=== PATIENT | female | born 1965 | race Caucasian/White ===

== ENCOUNTER 2017-09-06 00:07 | Day surgery (SDC) | payer OTHER ==
[~2017-09-06 00:07] MED LIST: Albuterol2.5 MG/0.5 INH; CHOL10002 PO; CLON.5 PO; CYAN1000I INJ; DIPH50 PO; DOXY100 PO; Desyrel150 MG PO; ESTMEDA PO; ESTR2; FERR325 PO; FLUSAL5005 INH; FURO40 PO; GUAI600T33 PO; LEVSOD100 PO; LORA.5 PO; MECL12.5 PO; MELO7.5 PO; METF500 PO; MONT10T PO; OMEPRAZOLE MAGN20 MG PO; POTA10T PO; PRIM250 PO; PROG100 PO; ROFL500T PO; SIMV40 PO; TIOT18 INH; VENL75ER PO
== END 2017-09-06 09:45 | disposition home or self-care (01) ==
LOC: ATC 00:07
DX: E53.8 Deficiency of other specified B group vitamins (principal); M25.551 Pain in right hip; E11.9 Type 2 diabetes mellitus without complications; H93.13 Tinnitus, bilateral
CPT/HCPCS: 96372; J3420

== ENCOUNTER 2017-10-13 00:29 | Day surgery (SDC) | payer OTHER | END 2017-10-13 10:16 | disposition home or self-care (01) | LOC: ATC 00:29 | DX: E53.8 Deficiency of other specified B group vitamins (principal); M25.551 Pain in right hip; E11.9 Type 2 diabetes mellitus without complications; H61.22 Impacted cerumen, left ear; Z87.891 Personal history of nicotine dependence | CPT/HCPCS: 96372; J3420 ==

== ENCOUNTER 2017-11-10 01:51 | Day surgery (SDC) | payer OTHER ==
[2017-11-10] MEDS ORDERED: GABA100 PO (09:58)
[2017-11-10] MEDS ORDERED: [UNRECOGNIZED DRUG - OTHER] (10:00)
== END 2017-11-10 10:00 | disposition home or self-care (01) ==
LOC: ATC 01:51
DX: E53.9 Vitamin B deficiency, unspecified (principal)
CPT/HCPCS: 96372; J3420

== ENCOUNTER 2017-12-10 00:43 | Day surgery (SDC) | payer OTHER ==
[~2017-12-10 00:43] MED LIST changes: +GABA100 PO; +[UNRECOGNIZED DRUG - OTHER]
[2017-12-10] MEDS ORDERED: Zanaflex4 MG PO (09:42)
== END 2017-12-10 09:46 | disposition home or self-care (01) ==
LOC: ATC 00:43
DX: E53.8 Deficiency of other specified B group vitamins (principal); Z87.891 Personal history of nicotine dependence; M54.31 Sciatica, right side; M25.551 Pain in right hip; M43.10 Spondylolisthesis, site unspecified; E66.01 Morbid (severe) obesity due to excess calories; E11.42 Type 2 diabetes mellitus with diabetic polyneuropathy
CPT/HCPCS: 96372; J3420

== ENCOUNTER 2018-01-07 00:15 | Day surgery (SDC) | payer OTHER ==
[~2018-01-07 00:15] MED LIST changes: +Zanaflex4 MG PO
== END 2018-01-07 09:55 | disposition home or self-care (01) ==
LOC: ATC 00:15
DX: E53.8 Deficiency of other specified B group vitamins (principal); E78.00 Pure hypercholesterolemia, unspecified; M54.31 Sciatica, right side; M43.10 Spondylolisthesis, site unspecified; E66.01 Morbid (severe) obesity due to excess calories; E11.42 Type 2 diabetes mellitus with diabetic polyneuropathy
CPT/HCPCS: 96372; J3420

== ENCOUNTER 2018-02-07 07:45 | Day surgery (SDC) | payer OTHER | END 2018-02-07 09:54 | disposition home or self-care (01) | LOC: ATC 07:45 | DX: E53.8 Deficiency of other specified B group vitamins (principal); C53.9 Malignant neoplasm of cervix uteri, unspecified; G47.30 Sleep apnea, unspecified; E78.00 Pure hypercholesterolemia, unspecified; M54.31 Sciatica, right side; M25.551 Pain in right hip; M43.10 Spondylolisthesis, site unspecified; E11.42 Type 2 diabetes mellitus with diabetic polyneuropathy; E11.51 Type 2 diabetes mellitus with diabetic peripheral angiopathy without gangrene; Z87.891 Personal history of nicotine dependence | CPT/HCPCS: 96372; J3420 ==

== ENCOUNTER 2018-04-07 00:27 | Day surgery (SDC) | payer OTHER | END 2018-04-07 09:38 | disposition home or self-care (01) | LOC: ATC 00:27 | DX: E53.8 Deficiency of other specified B group vitamins (principal); G47.30 Sleep apnea, unspecified; M54.31 Sciatica, right side; M43.10 Spondylolisthesis, site unspecified; E66.01 Morbid (severe) obesity due to excess calories; E11.51 Type 2 diabetes mellitus with diabetic peripheral angiopathy without gangrene; E11.42 Type 2 diabetes mellitus with diabetic polyneuropathy | CPT/HCPCS: 96372; J3420 ==

== ENCOUNTER 2018-10-07 09:03 | Emergency (ER) | payer OTHER ==
[~2018-10-07] VITALS: Ht 167.6 cm; Wt 121.6 kg
[2018-10-07] MEDS ORDERED: DULERA 100 MCG/13 GM (09:56)
[2018-10-07] MEDS ORDERED: Robaxin500 MG PO (10:49)
== END 2018-10-07 11:16 | disposition home or self-care (01) ==
LOC: ER 09:03
DX: R06.00 Dyspnea, unspecified (principal); R07.81 Pleurodynia; E11.9 Type 2 diabetes mellitus without complications; E03.9 Hypothyroidism, unspecified; J44.9 Chronic obstructive pulmonary disease, unspecified; Z79.84 Long term (current) use of oral hypoglycemic drugs; Z87.891 Personal history of nicotine dependence; Z79.899 Other long term (current) drug therapy
CPT/HCPCS: 71046; 93005; 93010

== ENCOUNTER → 2020-05-21 | Outpatient (CLI) | payer OTHER ==
[~2020-05-21] MED LIST changes: +DULERA 100 MCG/13 GM; +Robaxin500 MG PO
[2020-05-21 15:56] LABS: Source, Urine Clean Catch
[2020-05-21 17:38] LABS: Bilirubin, Urine Neg (Neg); Blood, Urine Neg (Neg); Glucose Qualitative, Urine Neg (Neg); Ketones, Urine Neg (Neg); Leukocyte Esterase, Urine Neg (Neg); Nitrite, Urine Neg (Neg); Protein, Urine Neg (Neg); Urobilinogen, Urine NORM (Normal)
[2020-05-21 18:01] LABS: Appearance, Urine Clear (Clear); Color, Urine Yellow (P-Yellow)
[2020-05-21 18:33] LABS: Creatinine, Urine Random 76.5 mg/dL (27.00-270.00)
[2020-05-21 18:36] LABS: Microalb/Creat Ratio UR, Rand 20.261 mg/g (0.000-30.000); Microalbumin, Random Urine 15.5 mg/L (0.000-20.000)
== END | disposition home or self-care (01) ==
LOC: LAB 15:50 → LAB SHORT 15:50
PROVIDERS: Nurse Practitioner Family
DX: E11.40 Type 2 diabetes mellitus with diabetic neuropathy, unspecified (principal); N28.9 Disorder of kidney and ureter, unspecified; R39.15 Urgency of urination
CPT/HCPCS: 81003; 82043; 82570

== ENCOUNTER → 2020-09-04 | Outpatient (CLI) | payer OTHER ==
[2020-09-06 18:11] LABS: COTININE Negative ng/mL (Cutoff=300)
== END | disposition home or self-care (01) ==
LOC: LAB 11:00
PROVIDERS: Neurological Surgery
DX: F17.290 Nicotine dependence, other tobacco product, uncomplicated (principal)

== ENCOUNTER 2021-04-15 15:28 | Emergency (ER) | payer OTHER ==
[~2021-04-15] VITALS: Ht 167.6 cm; Wt 117.9 kg
[2021-04-15 16:37] LABS: BASOPHILS ABSOLUTE AUTO 0.01 K/mm3 (0.00-0.23); BASOPHILS PERCENT AUTO 0 % (0-2); EOSINOPHILS PERCENT AUTO 0 % (0-6); Hematocrit 34.2 % (33.0-51.0); Hemoglobin 10.9 g/dL (11.5-16.0); IMMATURE GRAN ABSOLUTE AUTO 0.02 K/mm3 (0.00-0.10); IMMATURE GRAN PERCENT AUTO 1 % (0-1); LYMPHOCYTES ABSOLUTE AUTO 0.83 K/mm3 (0.84-5.20); LYMPHOCYTES PERCENT AUTO 19 % (21-46); MONOCYTES ABSOLUTE AUTO 0.35 K/mm3 (0.16-1.47); MONOCYTES PERCENT AUTO 8 % (4-13); Mean Corpuscular HGB 28.1 pg (26.0-34.0); Mean Corpuscular HGB Conc 31.9 g/dL (31.5-36.5); Mean Corpuscular Volume 88 fL (80-100); Mean Platelet Volume 9.8 fL (9.1-12.4); NEUTROPHILS ABSOLUTE AUTO 3.14 K/mm3 (1.96-9.15); NEUTROPHILS PERCENT AUTO 72 % (41-73); Platelet Count 220 K/mm3 (150-400); RDW Standard Deviation 48.4 fL (35.1-46.3); Red Blood Cell Count 3.88 M/mm3 (3.80-5.20); White Blood Cell Count 4.35 K/mm3 (4.00-11.30)
[2021-04-15 17:05] LABS: Alanine Aminotransfer (ALT/SGP 16 U/L (12-78); Albumin, Blood 2.9 g/dL (3.4-5.0); Albumin/Globulin Ratio 0.7 (0.8-1.8); Alk Phos 70 U/L (50-136); Anion Gap 5 mmol/L (6-16); Aspartate Aminotrans (AST/SGOT 17 U/L (12-37); Bilirubin, Total 0.3 mg/dL (0.1-1.0); Blood Urea Nitrogen 15 mg/dL (8-24); Bun/Creatinine Ratio 13.4 (12.0-20.0); CO2, Blood 27 mmol/L (21-32); Calcium, Blood 8.4 mg/dL (8.5-10.1); Chloride, Blood 99 mmol/L (98-108); Creatinine, Blood 1.12 mg/dL (0.40-1.00); Globulin, Blood 4.2 g/dL (2.2-4.0); Glomerular Filtration Rate 50 (60-); Glucose, Blood 121 mg/dL (70-99); Potassium, Blood 3.9 mmol/L (3.5-5.5); Sodium, Blood 131 mmol/L (136-145); Total Protein, Blood 7.1 g/dL (6.4-8.2); Troponin I <0.015 ng/mL (0.000-0.040)
[2021-04-15] MEDS ORDERED: DEXA4 PO (18:10)
== END 2021-04-15 20:00 | disposition home or self-care (01) ==
LOC: ER 15:28
PROVIDERS: Physician Assistant
DX: U07.1 COVID-19 (principal); J44.1 Chronic obstructive pulmonary disease with (acute) exacerbation; E11.9 Type 2 diabetes mellitus without complications; E03.9 Hypothyroidism, unspecified; G47.30 Sleep apnea, unspecified; Z79.899 Other long term (current) drug therapy; Z79.84 Long term (current) use of oral hypoglycemic drugs
CPT/HCPCS: 36415; 71045; 80053; 84145; 84484; 85025; 93005; 93010; 96361; 96372; 96374; 99285-25; A9270; J2930; J7030; Q0243

== ENCOUNTER → 2022-02-11 | Outpatient (CLI) | payer OTHER ==
[~2022-02-11] MED LIST changes: +DEXA4 PO
== END ==
LOC: LAB SHORT 15:00 → LAB 15:00
DX: L89.153 Pressure ulcer of sacral region, stage 3 (principal)
CPT/HCPCS: 87070; 87077; 87147; 87186; 87205